=== PATIENT | male | born 1995 ===

== ENCOUNTER → 2016-08-07 | Outpatient (CLI) | payer OTHER ==
--- NOTE | 2016-08-07 14:25 | Diagnostic Imaging Report ---
INDICATION: Right ankle pain AP, oblique, and lateral views of the right ankle are obtained. No fracture or acute bony abnormality is seen. IMPRESSION: Negative right ankle. Dictated by: Dictated on workstation # [id number]
== END ==
LOC: RAD 13:58
PROVIDERS: ATTEND Nurse Practitioner Family
DX: S93.401A Sprain of unspecified ligament of right ankle, initial encounter (principal); X58.XXXA Exposure to other specified factors, initial encounter; Y99.8 Other external cause status
CPT/HCPCS: 73610